=== PATIENT | male | born 1955 | race African-American/Black ===

== ENCOUNTER 2018-07-08 18:55 | Inpatient (IN) | payer MEDICARE, MEDICAID ==
[2018-07-08 19:21] LABS: HEMATOCRIT 39.6 % (41.0-60); HEMOGLOBIN 13.1 gm/dL (12-16); MEAN CELL VOLUME 97.2 fl (80-99); MEAN CORPUSCULAR HEMOGLOBIN 32.1 pg (26.0-30.0); MEAN PLATELET VOLUME 7.3 fl; PLATELET COUNT 299 Th/cmm (150-400); RED BLOOD COUNT 4.07 Mil/cmm (4.30-5.70); RED CELL DISTRIBUTION WIDTH 12.9 % (11.5-20.0); WHITE BLOOD COUNT 4.8 Th/cmm (4.8-10.8)
[2018-07-08 19:39] LABS: MAGNESIUM 1.9 mg/dL (1.9-2.7); PHOSPHOROUS 2.2 mg/dL (2.5-5.0)
[2018-07-08 19:41] LABS: ALB/GLOB RATIO 1.1 (1.0-1.8); ALBUMIN 3.7 gm/dL (4.2-5.5); ALKALINE PHOSPHATASE 90 U/L (34-104); ANION GAP 9.5 (7.0-16.0); BILIRUBIN,TOTAL 0.5 mg/dL (0.3-1.0); BUN - UREA NITROGEN 17 mg/dL (7-25); CALCIUM SERUM 8.8 mg/dL (8.6-10.3); CARBON DIOXIDE 24.2 mEq/L (21.0-31.0); CHLORIDE 105 mEq/L (98-107); CREATININE - SERUM 1.2 mg/dL (0.7-1.3); GFR AFRICAN-AMERICAN > 60.0 ml/min (>90); GFR NON AFRICAN-AMERICAN > 60.0 ml/min; GLUCOSE 92 mg/dL (70-105); POTASSIUM SERUM 3.7 mEq/L (3.5-5.1); SGOT 19 U/L (13-39); SGPT/ALT 19 U/L (7-52); SODIUM SERUM 135 mEq/L (136-145)
[2018-07-08 19:49] LABS: DDIMER QUANT < 100 ng/mL (100-400)
[2018-07-08 20:16] LABS: BAND NEUTROPHILE 1 % (0-10); LYMPHOCYTE 47 % (20-50); MONOCYTE 9 % (2-10); NEUTROPHILS 42 % (40-80)
[2018-07-08 20:17] LABS: EOSINOPHIL 1 % (0-5); PLATELET ESTIMATE ADEQUATE (NORMAL)
--- NOTE | 2018-07-08 20:21 | ED Physician Chart ---
ED Chief Complaint/HPI - Patient Information Date Seen:: 07/08/18 Time Seen:: 19:05 Chief Complaint:: Chest pain History of Present Illness:: Chest pain in a patient who was told that he needed a cardiac stent placed 2 months ago. Allergies:: Allergies Allergy/AdvReac Type Severity Reaction Status Date / Time No Known Allergies Allergy Verified 07/08/18 19:00 Vitals:: Vital Signs - 8 hr 07/08/18 19:01 Temp 99.0 F HR 70 RR 18 BP 151/72 O2 Sat % 96 ED Physical Exam - Physical Examination General/Constitutional: Awake Other Gen/Cons comments:: c/o sharp left sided chest pain. ENMT: External ears, nose nl Neck: Nontender, Full ROM w/o pain, No JVD, No nuchal rigidity, No bruit, No mass, No stridor Respiratory: Nl effort/Exclusion, Clear to Auscultation, No Wheeze/Rhonchi/Rales Cardio Vascular: RRR, No murmur, gallop, rubs, NL S1 S2 GI: No tenderness/rebounding/guarding Other GI comments:: large reducible umbilical hernia. Extremities: No tenderness or effusion, Full ROM, normal strength in all extremities, No edema, Normal digits & nails Other Extremities comments:: no calf tenderness. Negative Valente's sign. Neuro/Psych: Alert/oriented, Normal sensory exam, Normal motor strength, Mood normal, No focal deficits ED Labs/Radiology/EKG Results - Lab Results Results: Laboratory Tests 07/08/18 07/08/18 07/08/18 19:00 19:00 19:00 WBC 4.8 RBC 4.07 L Hgb 13.1 Hct 39.6 L MCV 97.2 MCH 32.1 H MCHC Differential 33.0 RDW 12.9 Plt Count 299 MPV 7.3 Add Manual Diff YES D-Dimer Sodium 135 L Potassium 3.7 Chloride 105 Carbon Dioxide 24.2 Anion Gap 9.5 BUN 17 Creatinine 1.2 Est GFR ( Amer) > 60.0 Est GFR (Non-Af Amer) > 60.0 BUN/Creatinine Ratio 14.2 Glucose 92 Whole Bld Lactic Acid Calcium 8.8 Phosphorus Magnesium Total Bilirubin 0.5 AST 19 ALT 19 Alkaline Phosphatase 90 Troponin I < 0.01 L Total Protein 7.0 Albumin 3.7 L Globulin 3.3 Albumin/Globulin Ratio 1.1 07/08/18 07/08/18 19:00 19:00 WBC RBC Hgb Hct MCV MCH MCHC Differential RDW Plt Count MPV Add Manual Diff D-Dimer < 100 L Sodium Potassium Chloride Carbon Dioxide Anion Gap BUN Creatinine Est GFR ( Amer) Est GFR (Non-Af Amer) BUN/Creatinine Ratio Glucose Whole Bld Lactic Acid 0.97 Calcium Phosphorus 2.2 L Magnesium 1.9 Total Bilirubin AST ALT Alkaline Phosphatase Troponin I Total Protein Albumin Globulin Albumin/Globulin Ratio ED Assessment - Assessment General Assessment: spoke to Dr. Angeles about admitting this patient who was told to have a cardiac stent placed in him by inspector casing at [facility] 2 months ago. he did not bother to show up for the appointment since he had family problems at the time. Assessment/Comments:: Patient was previously seen by Dr. Floey who read the EKG. CXR: NAD. ED Septic Shock - . Is Septic Shock (SBP<90, OR Lactate>4 mmol\L) present?: No - <6hrs of presentation: Vital Signs: Vital Signs - 8 hr 07/08/18 19:01 Temp 99.0 F HR 70 RR 18 BP 151/72 O2 Sat % 96 ED Reassessment (Disposition) - Reassessment Reassessment Condition:: Improved - Diagnosis Diagnosis:: Chest pain in a patient who was told 2 months ago to have a cardiac stent placed. HIV positive h/o COPD - Patient Disposition Discharge/Transfer:: Acute Care w/in this hosp Admitted to:: Telemetry Condition at Disposition:: Stable, Improved
[2018-07-08 21:15] LABS: URINE SOURCE CLEAN C
[2018-07-08 21:19] LABS: URINE BILIRUBIN NEGATIVE (NEGATIVE); URINE BLOOD TRACE (NEGATIVE); URINE GLUCOSE (UA) NEGATIVE (NEGATIVE); URINE KETONE NEGATIVE (NEGATIVE); URINE LEUKOCYTE ESTERASE SMALL (NEGATIVE); URINE MICROSCOPIC INDICATED? YES; URINE NITRATE POSITIVE (NEGATIVE); URINE PROTEIN NEGATIVE (NEGATIVE); URINE UROBILINOGEN 0.2 E.U./dL (0.2 - 1.0)
[2018-07-08 21:22] LABS: URINE COLOR YELLOW
[2018-07-08 21:23] LABS: URINE CLARITY HAZY (CLEAR)
[2018-07-08 21:36] LABS: URINE RBC 0-2 /hpf (0-5)
[2018-07-08 21:39] LABS: URINE BACTERIA MANY /hpf (NONE SEEN); URINE EPITHELIAL CELLS NONE SEEN /lpf (FEW)
[2018-07-08 21:42] LABS: AMPHETAMINE URINE NEGATIVE (NEGATIVE); OPIATES (MORPHINE) QUAL. URINE POSITIVE (NEGATIVE)
[2018-07-08 21:43] LABS: BARBITURATES URINE NEGATIVE (NEGATIVE); BENZODIAZEPINES QUAL URINE NEGATIVE (NEGATIVE); CANNABINOID THC NEGATIVE (NEGATIVE); COCAINE METABOLITE QUAL URINE NEGATIVE (NEGATIVE); METHADONE URINE NEGATIVE (NEGATIVE); METHAMPHETAMINES QUAL URINE NEGATIVE (NEGATIVE); PHENCYCLIDINE (PCP) URINE NEGATIVE (NEGATIVE); TRICYCLICS (TCA) QUAL. URINE NEGATIVE (NEGATIVE)
[2018-07-08] MEDS: Morphine Sulfate 4 mg/mL 1mL Syr IVP PRN (22:19)
[2018-07-09 01:17] VITALS: BP 128/67
[2018-07-09] MEDS: Morphine Sulfate 4 mg/mL 1mL Syr IVP PRN ×3 (06:37→19:03)
--- NOTE | 2018-07-09 09:07 | Diagnostic Imaging Report ---
Portable chest x-ray History: Shortness of breath Allowing for portable technique the heart size is normal. No focal pulmonary parenchymal processes. No hilar or mediastinal abnormalities. Impression: No acute abnormalities.
[2018-07-09] MEDS: Albuterol/Ipratropium Neb 3 ML AERS HHN PRN (10:21)
--- NOTE | 2018-07-09 12:42 | Internal Medicine Prog Note ---
Internal Medicine Subjective - Subjective Service Date: 07/09/18 Patient seen and examined:: without staff Patient is:: awake, verbal, interactive, in bed Patient Complaints of:: congestion Per staff patient has:: no adverse event Internal Medicine Objective - Results Result Diagrams: 07/08/18 19:00 07/08/18 19:00 Recent Labs: Laboratory Last Values WBC 4.8 Th/cmm (4.8-10.8) 07/08/18 19:00 RBC 4.07 Mil/cmm (4.30-5.70) L 07/08/18 19:00 Hgb 13.1 gm/dL (12-16) 07/08/18 19:00 Hct 39.6 % (41.0-60) L 07/08/18 19:00 MCV 97.2 fl (80-99) 07/08/18 19:00 MCH 32.1 pg (26.0-30.0) H 07/08/18 19:00 MCHC Differential 33.0 pg (28.0-36.0) 07/08/18 19:00 RDW 12.9 % (11.5-20.0) 07/08/18 19:00 Plt Count 299 Th/cmm (150-400) 07/08/18 19:00 MPV 7.3 fl 07/08/18 19:00 Add Manual Diff YES 07/08/18 19:00 Band Neutrophils % 1 % (0-10) 07/08/18 19:00 Neutrophils (Manual) 42 % (40-80) 07/08/18 19:00 Lymphocytes 47 % (20-50) 07/08/18 19:00 Monocytes 9 % (2-10) 07/08/18 19:00 Eosinophils 1 % (0-5) 07/08/18 19:00 Platelet Estimate ADEQUATE (NORMAL) 07/08/18 19:00 D-Dimer < 100 ng/mL (100-400) L 07/08/18 19:00 Sodium 135 mEq/L (136-145) L 07/08/18 19:00 Potassium 3.7 mEq/L (3.5-5.1) 07/08/18 19:00 Chloride 105 mEq/L (98-107) 07/08/18 19:00 Carbon Dioxide 24.2 mEq/L (21.0-31.0) 07/08/18 19:00 Anion Gap 9.5 (7.0-16.0) 07/08/18 19:00 BUN 17 mg/dL (7-25) 07/08/18 19:00 Creatinine 1.2 mg/dL (0.7-1.3) 07/08/18 19:00 Est GFR ( Amer) > 60.0 ml/min (>90) 07/08/18 19:00 Est GFR (Non-Af Amer) > 60.0 ml/min 07/08/18 19:00 BUN/Creatinine Ratio 14.2 07/08/18 19:00 Glucose 92 mg/dL (70-105) 07/08/18 19:00 Whole Bld Lactic Acid 0.97 mmol/L (0.60-1.99) 07/08/18 19:00 Calcium 8.8 mg/dL (8.6-10.3) 07/08/18 19:00 Phosphorus 2.2 mg/dL (2.5-5.0) L 07/08/18 19:00 Magnesium 1.9 mg/dL (1.9-2.7) 07/08/18 19:00 Total Bilirubin 0.5 mg/dL (0.3-1.0) 07/08/18 19:00 AST 19 U/L (13-39) 07/08/18 19:00 ALT 19 U/L (7-52) 07/08/18 19:00 Alkaline Phosphatase 90 U/L (34-104) 07/08/18 19:00 Creatine Kinase 162 U/L (30-223) 07/09/18 10:55 Troponin I < 0.01 ng/mL (0.01-0.05) L 07/09/18 10:55 Total Protein 7.0 gm/dL (6.0-8.3) 07/08/18 19:00 Albumin 3.7 gm/dL (4.2-5.5) L 07/08/18 19:00 Globulin 3.3 gm/dL 07/08/18 19:00 Albumin/Globulin Ratio 1.1 (1.0-1.8) 07/08/18 19:00 Urine Source CLEAN C 07/08/18 21:10 Urine Color YELLOW 07/08/18 21:10 Urine Clarity HAZY (CLEAR) 07/08/18 21:10 Urine pH 6.0 (4.6 - 8.0) 07/08/18 21:10 Ur Specific [place] 1.020 (1.005-1.030) 07/08/18 21:10 Urine Protein NEGATIVE mg/dL (NEGATIVE) 07/08/18 21:10 Urine Glucose (UA) NEGATIVE mg/dL (NEGATIVE) 07/08/18 21:10 Urine Ketones NEGATIVE mg/dL (NEGATIVE) 07/08/18 21:10 Urine Blood TRACE (NEGATIVE) 07/08/18 21:10 Urine Nitrate POSITIVE (NEGATIVE) H 07/08/18 21:10 Urine Bilirubin NEGATIVE (NEGATIVE) 07/08/18 21:10 Urine Urobilinogen 0.2 E.U./dL (0.2 - 1.0) 07/08/18 21:10 Ur Leukocyte Esterase SMALL (NEGATIVE) H 07/08/18 21:10 Urine RBC 0-2 /hpf (0-5) H 07/08/18 21:10 Urine WBC 10-25 /hpf (0-5) H 07/08/18 21:10 Ur Epithelial Cells NONE SEEN /lpf (FEW) 07/08/18 21:10 Urine Bacteria MANY /hpf (NONE SEEN) H 07/08/18 21:10 Urine Opiates Screen POSITIVE (NEGATIVE) H 07/08/18 21:10 Urine Methadone Screen NEGATIVE (NEGATIVE) 07/08/18 21:10 Ur Barbiturates Screen NEGATIVE (NEGATIVE) 07/08/18 21:10 Ur Tricyclics Screen NEGATIVE (NEGATIVE) 07/08/18 21:10 Ur Phencyclidine Scrn NEGATIVE (NEGATIVE) 07/08/18 21:10 Amphetamines Screen NEGATIVE (NEGATIVE) 07/08/18 21:10 U Methamphetamines Scrn NEGATIVE (NEGATIVE) 07/08/18 21:10 U Benzodiazepines Scrn NEGATIVE (NEGATIVE) 07/08/18 21:10 U Cocaine Metab Screen NEGATIVE (NEGATIVE) 07/08/18 21:10 U Cannabinoids Screen NEGATIVE (NEGATIVE) 07/08/18 21:10 - Physical Exam Vitals and I&O: Vital Signs Temp 97.7 F 07/09/18 08:00 Pulse 55 07/09/18 10:25 Resp 16 07/09/18 10:28 BP 118/73 07/09/18 08:00 Pulse Ox 98 07/09/18 10:25 Intake & Output 07/08/18 07/09/18 07/09/18 18:59 06:59 18:59 Output Total 525 Balance -525 Weight (lbs) 90.718 kg Output: Urine 525 Other: Weight Source Bedscale Active Medications: Current Medications Albuterol/Ipratropium (Duoneb Neb) 3 ml HHN Q4HRT PRN PRN Reason: Shortness of Breath or Wheeze Stop: 09/07/18 10:59 Last Admin: 07/09/18 10:21 Dose: 3 ml Atorvastatin Calcium (Lipitor) 20 mg PO HS MANISHA Stop: 09/07/18 20:59 Calcium/Vitamin D (Oscal W/Vitamin D) 1 tab PO BID MANISHA Stop: 09/07/18 16:59 Carisoprodol (Soma) 350 mg PO Q8H PRN PRN Reason: MUSCLE SPASM Stop: 09/07/18 12:23 Ciprofloxacin (Cipro) 250 mg PO BID MANISHA Stop: 09/07/18 16:59 Docusate Sodium (Colace) 100 mg PO BID MANISHA Stop: 09/07/18 16:59 Gemfibrozil (Lopid) 600 mg PO BIDAC MANISHA Stop: 09/07/18 16:29 Lisinopril (Zestril) 10 mg PO DAILY MANISHA Stop: 09/08/18 08:59 Metoprolol Tartrate (Lopressor) 25 mg PO BID MANISHA Stop: 09/07/18 16:59 Miscellaneous (Bisacodyl [Correctol]) 5 mg PO Q12H PRN PRN Reason: Constipation Miscellaneous (Cranberry [Cranberry]) 400 mg PO BID MANISHA Stop: 09/07/18 16:59 Miscellaneous (Elviteg/Bina/Emtric/Tenofo Dis [Stribild Tablet]) 1 tab PO DAILY MANISHA Stop: 09/08/18 08:59 Miscellaneous (Lisinopril [Lisinopril]) 10 mg PO DAILY MANISHA Stop: 09/08/18 08:59 Miscellaneous (Phenobarbital [Phenobarbital]) 60 mg PO TID MANISHA Stop: 09/07/18 13:59 Morphine Sulfate (Morphine) 4 mg IVP Q4H PRN PRN Reason: Chest Pain Stop: 09/06/18 20:50 Last Admin: 07/09/18 12:31 Dose: 4 mg Nitroglycerin (Nitrostat) 0.4 mg SL Q5MIN PRN PRN Reason: Chest Pain Nitroglycerin (Nitrostat) 0.4 mg SL Q5MIN PRN PRN Reason: Chest Pain Stop: 09/07/18 12:23 Pantoprazole Sodium (Protonix) 40 mg PO DAILY MANISHA Stop: 09/08/18 08:59 Promethazine HCl (Phenergan) 6.25 mg PO Q6H PRN PRN Reason: Cough Stop: 09/07/18 12:23 Tamsulosin HCl (Flomax) 0.4 mg PO DAILY MANISHA Stop: 09/08/18 08:59 Vitamin D (Vitamin D3) 2,000 iu PO DAILY MANISHA Stop: 09/08/18 08:59 General: weak, congested HEENT: NC/AT, PERRLA, EOMI, anicteric sclerae Neck: Supple, No JVD, No thyromegaly, No LAD Lungs: congested, wheezing, ronchi Cardiovascular: Normal S1, Normal S2 Abdomen: soft, non-tender, non-distended Extremities: clear Neurological: no change Internal Medicine Assmt/Plan - Assessment Assessment: COPD exacerbation: RT protocol; Solumedrol tapering. CP: r/o ACS Chronic pain syndrome: understandable and multifactorial; pain control. HIV: continue meds. Seizure: monotoring. Difficult walking: PT; fall prevention. BPH: flomax to be continued.
[2018-07-09] MEDS: Calcium Carb/Vit D 500 mg/200 U Tab PO SCH (16:46)
[2018-07-09] MEDS ORDERED: Non-Formulary Item 1 EA (Cranberry [Cranberry] 400 MG) PO SCH (17:00)
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
[2018-07-09] MEDS: Atorvastatin Calcium 10 MG TAB PO SCH (21:51)
[2018-07-10] MEDS: HYDROmorphone 2 mg/mL 1mL Vial IVP PRN ×6 (00:15→20:57)
--- NOTE | 2018-07-10 01:27 | Consultation ---
DATE OF CONSULTATION: 07/09/[address] Angeles. HISTORY AND PHYSICAL: This is a 63-year-old -[place] male patient who has been in the wheelchair was shopping at this time. The patient gets dizzy; following this had chest pain and fell off the wheelchair. At this time the patient was brought in to the Emergency Room and the patient is admitted. No history of PND, orthopnea. PAST MEDICAL HISTORY: The patient has a history of hypertension, hyperlipidemia, GERD, BPH. FAMILY HISTORY: Unremarkable. SOCIAL HISTORY: No history of smoking, alcohol abuse. ALLERGIES: No known allergies. PHYSICAL EXAMINATION: VITAL SIGNS: Blood pressure 130/80, pulse 70, respirations 20. HEAD: Normocephalic. No lumps or bumps. EYES: Pupils equal, reactive to light. Fundi show AV nicking, sclerae white, conjunctivae pink. NECK: Carotid 2+. Normal upstroke. JVD flat. Thyroid not palpable. Lymph nodes not palpable. CHEST: Shows increased AP diameter. No kyphosis, scoliosis. LUNGS: Bilateral bronchovesicular breath sounds. HEART: PMI fifth intercostal space with lateral to midclavicular line. S1, S2, S3, S4, soft systolic murmur. ABDOMEN: Soft. Liver, spleen not palpable. No organomegaly. Bowel sounds active. NEUROLOGIC: Unremarkable. EXTREMITIES: Peripheral pulses 2+. No pedal edema. CLINICAL IMPRESSION: 1. Chest pain, atypical. Troponin levels normal. 2. Hyperlipidemia. 3. Urinary tract infection. 4. Hypertension. 5. Gastroesophageal reflux disease. 6. BPH. PLAN: We will get troponin level, EKG, control the blood pressure and monitor the patient on telemetry bed. The patient's EKG is unremarkable. Troponin level is normal. The patient's cardiac status is stable. JOB# [id number]
[2018-07-10] MEDS: Vitamin D3 2,000 IU SGL PO SCH (08:17)
[2018-07-10] MEDS: Pantoprazole 40 mg EC Tab PO SCH (08:17)
[2018-07-10] MEDS: Calcium Carb/Vit D 500 mg/200 U Tab PO SCH ×2 (08:17→16:53)
[2018-07-10] MEDS: GENVOYA PO SCH (08:21)
[2018-07-10] MEDS ORDERED: [UNRECOGNIZED DRUG - OTHER] PO SCH (09:00)
[2018-07-10] MEDS ORDERED: [UNRECOGNIZED DRUG - OTHER] PO SCH (09:00)
[2018-07-10] MEDS ORDERED: LISINOPRIL 10 MG PO SCH (09:00)
[2018-07-10] MEDS: Albuterol/Ipratropium Neb 3 ML AERS HHN PRN (18:53)
[2018-07-10] MEDS: Atorvastatin Calcium 10 MG TAB PO SCH (20:57)
--- NOTE | 2018-07-10 22:38 | Internal Medicine Prog Note ---
Internal Medicine Subjective - Subjective Service Date: 07/10/18 Patient seen and examined:: without staff Patient is:: awake, verbal, interactive, in bed Patient Complaints of:: congestion Per staff patient has:: no adverse event Internal Medicine Objective - Results Result Diagrams: 07/08/18 19:00 07/08/18 19:00 Recent Labs: Laboratory Last Values WBC 4.8 Th/cmm (4.8-10.8) 07/08/18 19:00 RBC 4.07 Mil/cmm (4.30-5.70) L 07/08/18 19:00 Hgb 13.1 gm/dL (12-16) 07/08/18 19:00 Hct 39.6 % (41.0-60) L 07/08/18 19:00 MCV 97.2 fl (80-99) 07/08/18 19:00 MCH 32.1 pg (26.0-30.0) H 07/08/18 19:00 MCHC Differential 33.0 pg (28.0-36.0) 07/08/18 19:00 RDW 12.9 % (11.5-20.0) 07/08/18 19:00 Plt Count 299 Th/cmm (150-400) 07/08/18 19:00 MPV 7.3 fl 07/08/18 19:00 Add Manual Diff YES 07/08/18 19:00 Band Neutrophils % 1 % (0-10) 07/08/18 19:00 Neutrophils (Manual) 42 % (40-80) 07/08/18 19:00 Lymphocytes 47 % (20-50) 07/08/18 19:00 Monocytes 9 % (2-10) 07/08/18 19:00 Eosinophils 1 % (0-5) 07/08/18 19:00 Platelet Estimate ADEQUATE (NORMAL) 07/08/18 19:00 D-Dimer < 100 ng/mL (100-400) L 07/08/18 19:00 Sodium 135 mEq/L (136-145) L 07/08/18 19:00 Potassium 3.7 mEq/L (3.5-5.1) 07/08/18 19:00 Chloride 105 mEq/L (98-107) 07/08/18 19:00 Carbon Dioxide 24.2 mEq/L (21.0-31.0) 07/08/18 19:00 Anion Gap 9.5 (7.0-16.0) 07/08/18 19:00 BUN 17 mg/dL (7-25) 07/08/18 19:00 Creatinine 1.2 mg/dL (0.7-1.3) 07/08/18 19:00 Est GFR ( Amer) > 60.0 ml/min (>90) 07/08/18 19:00 Est GFR (Non-Af Amer) > 60.0 ml/min 07/08/18 19:00 BUN/Creatinine Ratio 14.2 07/08/18 19:00 Glucose 92 mg/dL (70-105) 07/08/18 19:00 Whole Bld Lactic Acid 0.97 mmol/L (0.60-1.99) 07/08/18 19:00 Calcium 8.8 mg/dL (8.6-10.3) 07/08/18 19:00 Phosphorus 2.2 mg/dL (2.5-5.0) L 07/08/18 19:00 Magnesium 1.9 mg/dL (1.9-2.7) 07/08/18 19:00 Total Bilirubin 0.5 mg/dL (0.3-1.0) 07/08/18 19:00 AST 19 U/L (13-39) 07/08/18 19:00 ALT 19 U/L (7-52) 07/08/18 19:00 Alkaline Phosphatase 90 U/L (34-104) 07/08/18 19:00 Creatine Kinase 162 U/L (30-223) 07/09/18 10:55 Troponin I < 0.01 ng/mL (0.01-0.05) L 07/09/18 10:55 Total Protein 7.0 gm/dL (6.0-8.3) 07/08/18 19:00 Albumin 3.7 gm/dL (4.2-5.5) L 07/08/18 19:00 Globulin 3.3 gm/dL 07/08/18 19:00 Albumin/Globulin Ratio 1.1 (1.0-1.8) 07/08/18 19:00 Urine Source CLEAN C 07/08/18 21:10 Urine Color YELLOW 07/08/18 21:10 Urine Clarity HAZY (CLEAR) 07/08/18 21:10 Urine pH 6.0 (4.6 - 8.0) 07/08/18 21:10 Ur Specific [place] 1.020 (1.005-1.030) 07/08/18 21:10 Urine Protein NEGATIVE mg/dL (NEGATIVE) 07/08/18 21:10 Urine Glucose (UA) NEGATIVE mg/dL (NEGATIVE) 07/08/18 21:10 Urine Ketones NEGATIVE mg/dL (NEGATIVE) 07/08/18 21:10 Urine Blood TRACE (NEGATIVE) 07/08/18 21:10 Urine Nitrate POSITIVE (NEGATIVE) H 07/08/18 21:10 Urine Bilirubin NEGATIVE (NEGATIVE) 07/08/18 21:10 Urine Urobilinogen 0.2 E.U./dL (0.2 - 1.0) 07/08/18 21:10 Ur Leukocyte Esterase SMALL (NEGATIVE) H 07/08/18 21:10 Urine RBC 0-2 /hpf (0-5) H 07/08/18 21:10 Urine WBC 10-25 /hpf (0-5) H 07/08/18 21:10 Ur Epithelial Cells NONE SEEN /lpf (FEW) 07/08/18 21:10 Urine Bacteria MANY /hpf (NONE SEEN) H 07/08/18 21:10 Urine Opiates Screen POSITIVE (NEGATIVE) H 07/08/18 21:10 Urine Methadone Screen NEGATIVE (NEGATIVE) 07/08/18 21:10 Ur Barbiturates Screen NEGATIVE (NEGATIVE) 07/08/18 21:10 Ur Tricyclics Screen NEGATIVE (NEGATIVE) 07/08/18 21:10 Ur Phencyclidine Scrn NEGATIVE (NEGATIVE) 07/08/18 21:10 Amphetamines Screen NEGATIVE (NEGATIVE) 07/08/18 21:10 U Methamphetamines Scrn NEGATIVE (NEGATIVE) 07/08/18 21:10 U Benzodiazepines Scrn NEGATIVE (NEGATIVE) 07/08/18 21:10 U Cocaine Metab Screen NEGATIVE (NEGATIVE) 07/08/18 21:10 U Cannabinoids Screen NEGATIVE (NEGATIVE) 07/08/18 21:10 - Physical Exam Vitals and I&O: Vital Signs Temp 98.9 F 07/10/18 20:00 Pulse 65 07/10/18 20:00 Resp 20 07/10/18 20:00 BP 135/77 07/10/18 20:00 Pulse Ox 97 07/10/18 20:00 Active Medications: Current Medications Albuterol/Ipratropium (Duoneb Neb) 3 ml HHN Q4HRT PRN PRN Reason: Shortness of Breath or Wheeze Stop: 09/07/18 10:59 Last Admin: 07/10/18 18:53 Dose: 3 ml Atorvastatin Calcium (Lipitor) 20 mg PO HS MANISHA Stop: 09/07/18 20:59 Last Admin: 07/10/18 20:57 Dose: 20 mg Bisacodyl (Dulcolax 5 Mg Ec Tab) 5 mg PO Q12H PRN PRN Reason: Constipation Stop: 09/07/18 12:36 Calcium/Vitamin D (Oscal W/Vitamin D) 1 tab PO BID [facility] Stop: 09/07/18 16:59 Last Admin: 07/10/18 16:53 Dose: 1 tab Carisoprodol (Soma) 350 mg PO Q8H PRN PRN Reason: MUSCLE SPASM Stop: 09/07/18 12:23 Ciprofloxacin (Cipro) 250 mg PO BID MANISHA Stop: 09/07/18 16:59 Last Admin: 07/10/18 16:59 Dose: 250 mg Docusate Sodium (Colace) 100 mg PO BID MANISHA Stop: 09/07/18 16:59 Last Admin: 07/10/18 16:53 Dose: 100 mg Gemfibrozil (Lopid) 600 mg PO BIDAC [facility] Stop: 09/07/18 16:29 Last Admin: 07/10/18 16:53 Dose: 600 mg Hydromorphone HCl (Dilaudid) 2 mg IVP Q4HR PRN PRN Reason: Severe Pain (LEVEL 7-10) Stop: 09/07/18 22:11 Last Admin: 07/10/18 20:57 Dose: 2 mg Lisinopril (Zestril) 10 mg PO DAILY [facility] Stop: 09/08/18 08:59 Last Admin: 07/10/18 08:19 Dose: 10 mg Methylprednisolone Sodium Succinate (Solu-Medrol) 80 mg IVP Q8HR MANISHA Stop: 09/07/18 12:59 Last Admin: 07/10/18 20:57 Dose: Not Given Metoprolol Tartrate (Lopressor) 25 mg PO BID [facility] Stop: 09/07/18 16:59 Last Admin: 07/10/18 16:57 Dose: Not Given Nitroglycerin (Nitrostat) 0.4 mg SL Q5MIN PRN PRN Reason: Chest Pain Nitroglycerin (Nitrostat) 0.4 mg SL Q5MIN PRN PRN Reason: Chest Pain Stop: 09/07/18 12:23 Pantoprazole Sodium (Protonix) 40 mg PO DAILY MANISHA Stop: 09/08/18 08:59 Last Admin: 07/10/18 08:17 Dose: 40 mg Genvoya (Bina/Stephani/Emtr/Teno) 150/150/200/10mg Tab 1 PO DAILY MANISHA Stop: 09/08/18 08:59 Last Admin: 07/10/18 08:21 Dose: 1 Phenobarbital (Phenobarbital) 64.8 mg PO TID MANISHA Stop: 09/07/18 13:59 Last Admin: 07/10/18 20:57 Dose: Not Given Promethazine HCl (Phenergan) 6.25 mg PO Q6H PRN PRN Reason: Cough Stop: 09/07/18 12:23 Tamsulosin HCl (Flomax) 0.4 mg PO DAILY MANISHA Stop: 09/08/18 08:59 Last Admin: 07/10/18 08:17 Dose: 0.4 mg Vitamin D (Vitamin D3) 2,000 iu PO DAILY [facility]ISHA Stop: 09/08/18 08:59 Last Admin: 07/10/18 08:17 Dose: 2,000 iu General: weak, congested HEENT: NC/AT, PERRLA, EOMI, anicteric sclerae Neck: Supple, No JVD, No thyromegaly, No LAD Lungs: congested, wheezing, ronchi Cardiovascular: Normal S1, Normal S2 Abdomen: soft, non-tender, non-distended Extremities: clear Neurological: no change Internal Medicine Assmt/Plan - Assessment Assessment: SOB: on and off; RT protocol. COPD exacerbation: RT protocol; Solumedrol tapering. CP: r/o ACS Chronic pain syndrome: understandable and multifactorial; pain control. HIV: continue meds. Seizure: monotoring. Difficult walking: PT; fall prevention. BPH: flomax to be continued.
[2018-07-11] MEDS: HYDROmorphone 2 mg/mL 1mL Vial IVP PRN ×6 (00:47→20:49)
[2018-07-11 07:54] LABS: % BASOPHILS 0.7 % (0.0-2.0); % EOSINOPHILS 4.5 % (0.0-5.0); % LYMPHOCYTES 31.3 % (20.0-50.0); % MONOCYTES 11.5 % (2.0-10.0); EOSINOPHILE ABSOLUTE 0.2 Th/cmm (0.1-0.4); HEMATOCRIT 44.5 % (41.0-60); HEMOGLOBIN 14.8 gm/dL (12-16); LYMPHOCYTE ABSOLUTE 1.5 Th/cmm (1.5-3.0); MEAN CORPUSCULAR HGB CONC 33.3 pg (28.0-36.0); MEAN PLATELET VOLUME 7.1 fl; MONOCYTE ABSOLUTE 0.5 Th/cmm (0.3-1.0); NEUTROPHILE ABSOLUTE 2.5 Th/cmm (1.8-8.0); PLATELET COUNT 285 Th/cmm (150-400); RED BLOOD COUNT 4.64 Mil/cmm (4.30-5.70); RED CELL DISTRIBUTION WIDTH 13.2 % (11.5-20.0); WHITE BLOOD COUNT 4.7 Th/cmm (4.8-10.8)
[2018-07-11 08:14] LABS: ANION GAP 10.2 (7.0-16.0); BUN - UREA NITROGEN 21 mg/dL (7-25); CALCIUM SERUM 9.2 mg/dL (8.6-10.3); CARBON DIOXIDE 25.8 mEq/L (21.0-31.0); CHLORIDE 102 mEq/L (98-107); CREATININE - SERUM 1.2 mg/dL (0.7-1.3); GFR AFRICAN-AMERICAN > 60.0 ml/min (>90); GFR NON AFRICAN-AMERICAN > 60.0 ml/min; GLUCOSE 95 mg/dL (70-105); SODIUM SERUM 134 mEq/L (136-145)
[2018-07-11] MEDS: Lactulose 10 Gm/15 mL 30mL UDC PO SCH ×3 (08:51→20:49)
[2018-07-11] MEDS: Vitamin D3 2,000 IU SGL PO SCH (08:52)
[2018-07-11] MEDS: Calcium Carb/Vit D 500 mg/200 U Tab PO SCH ×2 (08:52→16:52)
[2018-07-11] MEDS: Pantoprazole 40 mg EC Tab PO SCH (08:52)
[2018-07-11] MEDS: GENVOYA PO SCH (08:57)
--- NOTE | 2018-07-11 13:32 | Cardiology ---
07/10/[address] Angeles. M-MODE ECHOCARDIOGRAM: Mitral valve, anterior leaflet of mitral valve shows normal excursion, EF velocity. Posterior leaflet of mitral valve shows normal excursion. Left ventricular posterior wall shows increased thickness, normal excursion. Interventricular septum shows increased thickness, normal excursion, hypertrophy of the left ventricle, ejection fraction 61%. Left atrium normal. Aortic root shows normal dimension, normal excursion of aortic leaflets. CONCLUSION: Hypertrophy of the left ventricle, ejection fraction 61%. 2D ECHO: Long axis view showed normal sized left ventricle with hypertrophy of the left ventricle. Left atrium normal. Aortic root shows normal dimension, normal excursion of aortic leaflets. Short axis view of mitral valve normal. Short axis view of aortic valve normal. Apical four chamber view showed normal sized left ventricle, left atrium, right ventricle, right atrium, tricuspid and mitral valve. Ejection fraction 61%. CONCLUSION: Hypertrophy of the left ventricle, ejection fraction 61%. Doppler study shows moderate mitral regurgitation, moderate tricuspid regurgitation, right ventricular systolic pressure of 47 mmHg with mild pulmonary hypertension. CONCLUSION: Moderate mitral regurgitation, moderate tricuspid regurgitation, mild pulmonary hypertension, left ventricular hypertrophy. Ejection fraction 61%. [facility]# [id number]
[2018-07-11] MEDS: Atorvastatin Calcium 10 MG TAB PO SCH (20:49)
--- NOTE | 2018-07-11 23:05 | Internal Medicine Prog Note ---
Internal Medicine Subjective - Subjective Service Date: 07/11/18 Patient seen and examined:: without staff Patient is:: awake, verbal, interactive, in bed Patient Complaints of:: congestion Per staff patient has:: no adverse event Internal Medicine Objective - Results Result Diagrams: 07/11/18 07:48 07/11/18 07:48 Recent Labs: Laboratory Last Values WBC 4.7 Th/cmm (4.8-10.8) L 07/11/18 07:48 RBC 4.64 Mil/cmm (4.30-5.70) 07/11/18 07:48 Hgb 14.8 gm/dL (12-16) 07/11/18 07:48 Hct 44.5 % (41.0-60) 07/11/18 07:48 MCV 96.0 fl (80-99) 07/11/18 07:48 MCH 32.0 pg (26.0-30.0) H 07/11/18 07:48 MCHC Differential 33.3 pg (28.0-36.0) 07/11/18 07:48 RDW 13.2 % (11.5-20.0) 07/11/18 07:48 Plt Count 285 Th/cmm (150-400) 07/11/18 07:48 MPV 7.1 fl 07/11/18 07:48 Add Manual Diff YES 07/08/18 19:00 Neutrophils % 52.0 % (40.0-80.0) 07/11/18 07:48 Band Neutrophils % 1 % (0-10) 07/08/18 19:00 Lymphocytes % 31.3 % (20.0-50.0) 07/11/18 07:48 Monocytes % 11.5 % (2.0-10.0) H 07/11/18 07:48 Eosinophils % 4.5 % (0.0-5.0) 07/11/18 07:48 Basophils % 0.7 % (0.0-2.0) 07/11/18 07:48 Neutrophils (Manual) 42 % (40-80) 07/08/18 19:00 Lymphocytes 47 % (20-50) 07/08/18 19:00 Monocytes 9 % (2-10) 07/08/18 19:00 Eosinophils 1 % (0-5) 07/08/18 19:00 Platelet Estimate ADEQUATE (NORMAL) 07/08/18 19:00 D-Dimer < 100 ng/mL (100-400) L 07/08/18 19:00 Sodium 134 mEq/L (136-145) L 07/11/18 07:48 Potassium 4.0 mEq/L (3.5-5.1) 07/11/18 07:48 Chloride 102 mEq/L (98-107) 07/11/18 07:48 Carbon Dioxide 25.8 mEq/L (21.0-31.0) 07/11/18 07:48 Anion Gap 10.2 (7.0-16.0) 07/11/18 07:48 BUN 21 mg/dL (7-25) 07/11/18 07:48 Creatinine 1.2 mg/dL (0.7-1.3) 07/11/18 07:48 Est GFR ( Amer) > 60.0 ml/min (>90) 07/11/18 07:48 Est GFR (Non-Af Amer) > 60.0 ml/min 07/11/18 07:48 BUN/Creatinine Ratio 17.5 07/11/18 07:48 Glucose 95 mg/dL (70-105) 07/11/18 07:48 Whole Bld Lactic Acid 0.97 mmol/L (0.60-1.99) 07/08/18 19:00 Calcium 9.2 mg/dL (8.6-10.3) 07/11/18 07:48 Phosphorus 2.2 mg/dL (2.5-5.0) L 07/08/18 19:00 Magnesium 1.9 mg/dL (1.9-2.7) 07/08/18 19:00 Total Bilirubin 0.5 mg/dL (0.3-1.0) 07/08/18 19:00 AST 19 U/L (13-39) 07/08/18 19:00 ALT 19 U/L (7-52) 07/08/18 19:00 Alkaline Phosphatase 90 U/L (34-104) 07/08/18 19:00 Creatine Kinase 162 U/L (30-223) 07/09/18 10:55 Troponin I < 0.01 ng/mL (0.01-0.05) L 07/09/18 10:55 Total Protein 7.0 gm/dL (6.0-8.3) 07/08/18 19:00 Albumin 3.7 gm/dL (4.2-5.5) L 07/08/18 19:00 Globulin 3.3 gm/dL 07/08/18 19:00 Albumin/Globulin Ratio 1.1 (1.0-1.8) 07/08/18 19:00 Urine Source CLEAN C 07/08/18 21:10 Urine Color YELLOW 07/08/18 21:10 Urine Clarity HAZY (CLEAR) 07/08/18 21:10 Urine pH 6.0 (4.6 - 8.0) 07/08/18 21:10 Ur Specific [place] 1.020 (1.005-1.030) 07/08/18 21:10 Urine Protein NEGATIVE mg/dL (NEGATIVE) 07/08/18 21:10 Urine Glucose (UA) NEGATIVE mg/dL (NEGATIVE) 07/08/18 21:10 Urine Ketones NEGATIVE mg/dL (NEGATIVE) 07/08/18 21:10 Urine Blood TRACE (NEGATIVE) 07/08/18 21:10 Urine Nitrate POSITIVE (NEGATIVE) H 07/08/18 21:10 Urine Bilirubin NEGATIVE (NEGATIVE) 07/08/18 21:10 Urine Urobilinogen 0.2 E.U./dL (0.2 - 1.0) 07/08/18 21:10 Ur Leukocyte Esterase SMALL (NEGATIVE) H 07/08/18 21:10 Urine RBC 0-2 /hpf (0-5) H 07/08/18 21:10 Urine WBC 10-25 /hpf (0-5) H 07/08/18 21:10 Ur Epithelial Cells NONE SEEN /lpf (FEW) 07/08/18 21:10 Urine Bacteria MANY /hpf (NONE SEEN) H 07/08/18 21:10 Urine Opiates Screen POSITIVE (NEGATIVE) H 07/08/18 21:10 Urine Methadone Screen NEGATIVE (NEGATIVE) 07/08/18 21:10 Ur Barbiturates Screen NEGATIVE (NEGATIVE) 07/08/18 21:10 Ur Tricyclics Screen NEGATIVE (NEGATIVE) 07/08/18 21:10 Ur Phencyclidine Scrn NEGATIVE (NEGATIVE) 07/08/18 21:10 Amphetamines Screen NEGATIVE (NEGATIVE) 07/08/18 21:10 U Methamphetamines Scrn NEGATIVE (NEGATIVE) 07/08/18 21:10 U Benzodiazepines Scrn NEGATIVE (NEGATIVE) 07/08/18 21:10 U Cocaine Metab Screen NEGATIVE (NEGATIVE) 07/08/18 21:10 U Cannabinoids Screen NEGATIVE (NEGATIVE) 07/08/18 21:10 - Physical Exam Vitals and I&O: Vital Signs Temp 98.5 F 07/11/18 16:00 Pulse 55 07/11/18 18:55 Resp 18 07/11/18 20:00 BP 125/66 07/11/18 16:57 Pulse Ox 97 07/11/18 18:55 Intake & Output 07/11/18 07/11/18 07/12/18 06:59 18:59 06:59 Intake Total 300 500 Balance 300 500 Weight (lbs) 90.718 kg 90.718 kg Intake: Oral 300 500 Other: # Voids 3 2 # Bowel Movements 0 2 Stool Characteristics Soft Soft Liquid Weight Source Bedscale Bedscale Active Medications: Current Medications Albuterol/Ipratropium (Duoneb Neb) 3 ml HHN Q4HRT PRN PRN Reason: Shortness of Breath or Wheeze Stop: 09/07/18 10:59 Last Admin: 07/10/18 18:53 Dose: 3 ml Atorvastatin Calcium (Lipitor) 20 mg PO HS [facility] Stop: 09/07/18 20:59 Last Admin: 07/11/18 20:49 Dose: 20 mg Bisacodyl (Dulcolax 5 Mg Ec Tab) 5 mg PO Q12H PRN PRN Reason: Constipation Stop: 09/07/18 12:36 Calcium/Vitamin D (Oscal W/Vitamin D) 1 tab PO BID [facility] Stop: 09/07/18 16:59 Last Admin: 07/11/18 16:52 Dose: 1 tab Carisoprodol (Soma) 350 mg PO Q8H PRN PRN Reason: MUSCLE SPASM Stop: 09/07/18 12:23 Ciprofloxacin (Cipro) 250 mg PO BID [facility] Stop: 09/07/18 16:59 Last Admin: 07/11/18 16:53 Dose: 250 mg Docusate Sodium (Colace) 100 mg PO BID [facility] Stop: 09/07/18 16:59 Last Admin: 07/11/18 16:52 Dose: 100 mg Gemfibrozil (Lopid) 600 mg PO BIDAC [facility] Stop: 09/07/18 16:29 Last Admin: 07/11/18 16:52 Dose: 600 mg Hydromorphone HCl (Dilaudid) 2 mg IVP Q4HR PRN PRN Reason: Severe Pain (LEVEL 7-10) Stop: 09/07/18 22:11 Last Admin: 07/11/18 20:49 Dose: 2 mg Lactulose (Cephulac) 30 gm PO TID [facility] Stop: 09/09/18 08:59 Last Admin: 07/11/18 20:49 Dose: Not Given Lisinopril (Zestril) 10 mg PO DAILY [facility] Stop: 09/08/18 08:59 Last Admin: 07/11/18 08:53 Dose: Not Given Methylprednisolone Sodium Succinate (Solu-Medrol) 80 mg IVP Q8HR [facility] Stop: 09/07/18 12:59 Last Admin: 07/11/18 20:49 Dose: Not Given Metoprolol Tartrate (Lopressor) 25 mg PO BID [facility] Stop: 09/07/18 16:59 Last Admin: 07/11/18 16:57 Dose: Not Given Nitroglycerin (Nitrostat) 0.4 mg SL Q5MIN PRN PRN Reason: Chest Pain Nitroglycerin (Nitrostat) 0.4 mg SL Q5MIN PRN PRN Reason: Chest Pain Stop: 09/07/18 12:23 Pantoprazole Sodium (Protonix) 40 mg PO DAILY [facility] Stop: 09/08/18 08:59 Last Admin: 07/11/18 08:52 Dose: 40 mg Genvoya (Bina/Stephani/Emtr/Teno) 150/150/200/10mg Tab 1 PO DAILY [facility] Stop: 09/08/18 08:59 Last Admin: 07/11/18 08:57 Dose: 1 Phenobarbital (Phenobarbital) 64.8 mg PO TID [facility] Stop: 09/07/18 13:59 Last Admin: 07/11/18 20:49 Dose: Not Given Promethazine HCl (Phenergan) 6.25 mg PO Q6H PRN PRN Reason: Cough Stop: 09/07/18 12:23 Tamsulosin HCl (Flomax) 0.4 mg PO DAILY [facility] Stop: 09/08/18 08:59 Last Admin: 07/11/18 08:53 Dose: 0.4 mg Vitamin D (Vitamin D3) 2,000 iu PO DAILY [facility] Stop: 09/08/18 08:59 Last Admin: 07/11/18 08:52 Dose: 2,000 iu General: weak, congested HEENT: NC/AT, PERRLA, EOMI, anicteric sclerae Neck: Supple, No JVD, No thyromegaly, No LAD Lungs: congested, wheezing, ronchi Cardiovascular: Normal S1, Normal S2 Abdomen: soft, non-tender, non-distended Extremities: clear Neurological: no change Internal Medicine Assmt/Plan - Assessment Assessment: MDRO UTI: sensitive to cipro which is to be continued. COPD exacerbation: RT protocol; Solumedrol tapering. SOB: on and off; RT protocol. CP: r/o ACS Chronic pain syndrome: understandable and multifactorial; pain control. HIV: continue meds. Seizure: monotoring. Difficult walking: PT; fall prevention. BPH: flomax to be continued. Nutritional Asmnt/Malnutr-PDOC - Dietary Evaluation Malnutrition Findings (Please click <Entered> for more info): Nutritional Asmnt/Malnutrition Start: 07/11/18 15: 48 Text: Status: Complete Freq: Protocol: Document 07/11/18 15:48 LCHENG (Rec: 07/11/18 15:58 [id number]) Nutritional Asmnt/Malnutrition Patient General Information Nutritional Screening Moderate Risk Diagnosis chest pain, SOB, ACS, COPD Pertinent Medical Hx/Surgical Hx COPD, PNA, coronary heart disease, seizure, disorder, chronic pain syndrome, BPH Subjective Information Pt seen sitting in bed, finished 50% of lunch. Pt reported constipation, last BM was three days ago. Send one prune juice per pt request. Current Diet Order/ Nutrition Support cardiac Pertinent Medications oscal w/vit D, colace, protonix, vit D3 Pertinent Labs 07/11 Na 134, glucose 95 07/08 Na 135, Phos 2.2 Nutritional Hx/Data Height 1.73 m Height (Calculated Centimeters) 172.7 Current Weight (lbs) 90.718 kg Weight (Calculated Kilograms) 90.7 Weight (Calculated Grams) 43006.5 [place] Body Weight 152 Body Mass Index (BMI) 30.4 Weight Status Obese GI Symptoms GI Symptoms None Last BM none Difficult in: None Skin Integrity/Comment: intact Current %PO Fair (50-74%) Estimated Nutritional Goals Calories/Kcals/Kg 25-30 based on IBW 69kg Kcals Calculated 9541-1687 Protein g/k Protein Calculated 69 Fluid: ml 1725-2070ml (1ml/kcal) Intervention/Recommendation Comments 1. Continue with cardiac diet as ordered. Encourage fluid and fiber intake to improve BM . 2. Monitor PO intake, wt, labs and skin integrity 3. F/U as moderate risk in 3-5 days, 07/14-07/16 Expected Outcomes/Goals Expected Outcomes/Goals 1. PO intake to meet at least 75% of nutritional needs. 2. Wt stability, skin to remain intact, labs to approach WNL.
[2018-07-12] MEDS: HYDROmorphone 2 mg/mL 1mL Vial IVP PRN ×4 (00:57→13:16)
[2018-07-12] MEDS: Vitamin D3 2,000 IU SGL PO SCH (08:46)
[2018-07-12] MEDS: Pantoprazole 40 mg EC Tab PO SCH (08:48)
[2018-07-12] MEDS: GENVOYA PO SCH (08:49)
[2018-07-12] MEDS: Lactulose 10 Gm/15 mL 30mL UDC PO SCH ×2 (08:50→13:37)
[2018-07-12] MEDS: Calcium Carb/Vit D 500 mg/200 U Tab PO SCH (08:50)
--- NOTE | 2018-07-15 10:22 | Discharge Summary ---
DATE OF DISCHARGE: 07/12/2018 FINAL DIAGNOSES: 1. Chronic obstructive pulmonary disease exacerbation, improved. 2. Chest pain, resolved. 3. History of coronary artery disease. 4. HIV with medication continued left and chronic pain syndrome, multifactorial. 5. Left multidrug resistant urinary tract infection, received antibiotics. HOSPITAL COURSE: The patient is a 63-year-old -[place] male admitted due to short of breath from COPD exacerbation. The patient also complained of chest pain and chronic pain syndrome. He was ruled out for acute coronary syndrome. The patient had received RT protocol, Solu-Medrol. His condition improved significantly and finally the patient is going to be discharged. The patient chose to go to a skilled nursing in [facility] near his sister's house. DISCHARGE CONDITION: Stable. DISPOSITION: [facility] in [facility]. DISCHARGE MEDICATIONS: Continue medication from here. DIET: Cardiac diet. ACTIVITY: Up as tolerated. FOLLOWUP: One week. [facility]# [id number]
== END 2018-07-12 15:40 | DRG 191 ==
LOC: ER 18:55 → MSI 20:15 → TELE 07-09 01:06
PROVIDERS: ADMIT Internal Medicine; ATTEND Internal Medicine
DX: J44.1 Chronic obstructive pulmonary disease with (acute) exacerbation (principal); N39.0 Urinary tract infection, site not specified; G40.909 Epilepsy, unspecified, not intractable, without status epilepticus; G89.4 Chronic pain syndrome; I25.10 Atherosclerotic heart disease of native coronary artery without angina pectoris; N40.0 Benign prostatic hyperplasia without lower urinary tract symptoms; R07.89 Other chest pain; K21.9 Gastro-esophageal reflux disease without esophagitis; E78.5 Hyperlipidemia, unspecified; I10 Essential (primary) hypertension; Z95.5 Presence of coronary angioplasty implant and graft
CPT/HCPCS: 36415-UA; 71045-TC; 80048-TC; 80053-TC; 80307; 81001-TC; 82550-TC; 83605; 83735-TC; 84100-TC; 84484-TC; 85007-TC; 85025-TC; 85379-TC; 87086-90; 93005; 94760; J1170; J2930; Z7610